=== PATIENT | female | born 1985 | race Two or more races ===

== ENCOUNTER 2024-05-11 20:40 | Emergency (ER) | payer MEDICAID, OTHER ==
[~2024-05-11] VITALS: Ht 160 cm; Wt 70.4 kg
[2024-05-11 21:59] VITALS: BP 98/68; PULSE 102; RESP 16; O2SAT 100
== END 2024-05-12 03:33 | disposition left against medical advice (07) ==
LOC: ER 20:40
DX: M79.662 Pain in left lower leg (principal); Z53.21 Procedure and treatment not carried out due to patient leaving prior to being seen by health care provider